=== PATIENT | female | born 1950 | race Caucasian/White ===

== ENCOUNTER → 2022-02-09 | Outpatient (CLI) | payer MEDICARE, SELFPAY ==
[2022-02-09 12:09] LABS: Absolute Lymphocyte Count 2.96 X10^3/uL (0.83-4.51); Absolute Neutrophil Count 4.4 X10^3/uL (2.0-7.7); Basophil# 0.07 X10^3/uL; Basophil% 0.8 % (0-1); Eosinophil# 0.32 X10^3/uL; Eosinophils% 3.7 % (0-5); Hematocrit 42.3 % (37-47); Hemoglobin 13.4 g/dL (12.0-15.0); Lymphocyte # 2.96 X10^3/ul (0.83-4.51); Lymphocyte % 34.4 % (19-41); Mean Corp Hgb Conc 31.7 g/dL (32-36); Mean Corpuscular Hgb 31.9 pg (27.0-32.0); Mean Corpuscular Volume 100.7 fL (81-99); Monocyte# 0.79 X10^3/uL; Monocyte% 9.2 % (0-10); NRBC Flagged by Analyzer 0 % (0-5); Neutrophil # 4.35 X10^3/uL (2.7-7.7); Neutrophil % 50.6 % (47-70); Platelet Count 634 K/mm3 (150-450); RBC Distribution Width CV 13.2 % (11.6-14.6); White Blood Count 8.6 K/mm3 (4.4-11.0)
[2022-02-09 12:47] LABS: ALB/GLOB Ratio 0.7 RATIO (0.9-2.4); AST(SGOT) 19 U/L (15-37); Alanine Aminotransfer ALT/SGPT 22 U/L (13-56); Albumin, Serum 3.2 g/dL (3.2-5.0); Alkaline Phosphatase 66 U/L (45-117); Anion Gap 7 (5-15); BUN 14 mg/dL (7-18); BUN/Creat Ratio 12.7 RATIO (10-20); Calcium,Total 9.7 mg/dL (8.5-10.1); Chloride 106 mmol/L (98-107); EST Glomerular Filtration Rate 52 mL/min (>60); Est Glom Filt Rate - Afr Amer 62 mL/min (>60); Globulin 4.5 g/dL (2.2-4.2); Glucose 96 mg/dL (74-106); Potassium 3.7 mmol/L (3.5-5.1); Protein, Total 7.7 g/dL (6.4-8.2); Sodium Level 140 mmol/L (136-145)
== END | disposition home or self-care (01) ==
PROVIDERS: PCP Internal Medicine; Referring Provider Internal Medicine; Visit Provider Internal Medicine
DX: J06.9 Acute upper respiratory infection, unspecified (principal); Z20.822 Contact with and (suspected) exposure to COVID-19
CPT/HCPCS: 36415; 80053; 85025; 87635; U0003; U0005

== ENCOUNTER → 2022-05-31 | Outpatient (CLI) | payer MEDICARE, SELFPAY ==
[2022-05-31 13:20] LABS: Anion Gap 4 (5-15); BUN 17 mg/dL (7-18); BUN/Creat Ratio 16.3 RATIO (10-20); Chloride 106 mmol/L (98-107); Cholesterol 167 mg/dL (200); Creatinine, Serum 1.04 mg/dL (0.55-1.02); EST Glomerular Filtration Rate 55 mL/min (>60); Est Glom Filt Rate - Afr Amer 67 mL/min (>60); Glucose 92 mg/dL (74-106); High Density Lipoprotein 55 mg/dL; Potassium 4.8 mmol/L (3.5-5.1); Sodium Level 139 mmol/L (136-145); Triglycerides 134 mg/dL; Very Low Density Lipoprotein 27 mg/dL (5-40)
== END | disposition home or self-care (01) ==
LOC: BIMLAB 10:29
PROVIDERS: PCP Internal Medicine; Referring Provider Internal Medicine; Visit Provider Internal Medicine
DX: I10 Essential (primary) hypertension (principal)
CPT/HCPCS: 36415; 80048; 80061

== ENCOUNTER → 2022-09-27 | Outpatient (CLI) | payer MEDICARE, SELFPAY ==
[2022-09-27 12:59] LABS: T3 Total - Triiodothyronine 1.33 ng/mL (0.6-1.81)
[2022-09-27 13:15] LABS: Anion Gap 5 (5-15); BUN 15 mg/dL (7-18); BUN/Creat Ratio 15.4 RATIO (10-20); Calcium,Total 9.3 mg/dL (8.5-10.1); Chloride 107 mmol/L (98-107); Creatinine, Serum 0.98 mg/dL (0.55-1.02); EST Glomerular Filtration Rate 59 mL/min (>60); Est Glom Filt Rate - Afr Amer 72 mL/min (>60); Glucose 94 mg/dL (74-106); Potassium 4.1 mmol/L (3.5-5.1); Sodium Level 139 mmol/L (136-145); T4 Free Direct 1.06 ng/dL (0.76-1.46); Thyroid Stim Hormone (TSH) 0.85 uIU/mL (0.358-3.74)
== END | disposition home or self-care (01) ==
LOC: BIMLAB 08:13
PROVIDERS: PCP Internal Medicine; Referring Provider Internal Medicine; Visit Provider Internal Medicine
DX: M54.50 Low back pain, unspecified (principal); G89.29 Other chronic pain; I10 Essential (primary) hypertension; Z86.39 Personal history of other endocrine, nutritional and metabolic disease
CPT/HCPCS: 36415; 80048; 84439; 84443; 84480

== ENCOUNTER → 2022-12-06 | Outpatient (CLI) | payer MEDICARE, SELFPAY ==
--- NOTE | 2022-12-06 14:11 | US_ITS ---
INDICATION: enlarged right sided lymph node EXAMINATION: Ultrasound US Head/Neck Soft Tissue TECHNIQUE: Chávez scale and color doppler imaging was performed of the neck. COMPARISON: No relevant prior comparison study available FINDINGS: Soft tissue mass in the right side of the neck likely represent prominent node corresponding to the palpable abnormality measuring about 2.6 x 1.2 x 1.8 cm.. Smaller node on the left side of the neck measuring about 1 x 2.4 x 0.7 cm. [No other masses are identified. US/Head/Neck Soft Tissue IMPRESSION: Palpable soft tissue mass on the right side of neck as described above likely representing enlarged lymph nodes. CT scan of the soft tissues of neck might be further value. Consider ultrasound-guided biopsy if indicated. Electronically Signed: Carmelo Booker MD at 15:23 EDT ,
== END | disposition home or self-care (01) ==
PROVIDERS: PCP Internal Medicine; Referring Provider Internal Medicine; Visit Provider Internal Medicine
DX: R59.0 Localized enlarged lymph nodes (principal)
CPT/HCPCS: 76536

== ENCOUNTER → 2023-01-11 | Outpatient (CLI) | payer MEDICARE, SELFPAY ==
--- NOTE | 2023-01-11 14:34 | CT_ITS ---
EXAM: CT NECK WITH INTRAVENOUS CONTRAST CLINICAL INDICATION: cervical adenopathy TECHNIQUE: Helically acquired images were obtained of the neck with intravenous contrast. This CT exam was performed using one or more of the following dose reduction techniques: automated exposure control, adjustment of the mA and/or kV according to patient size, and/or use of iterative reconstruction technique. CONTRAST: IV 75mL [id number] COMPARISON: Soft tissue neck ultrasound, 12/06/2022. FINDINGS: NASOPHARYNX: No significant abnormality. SUPRAHYOID NECK: No significant abnormality. Oropharynx, oral cavity, parapharyngeal space and retropharyngeal space are unremarkable. INFRAHYOID NECK: No significant abnormality. The larynx, hypopharynx and supraglottis are unremarkable. SUBMANDIBULAR/PAROTID GLANDS: Asymmetric atrophy of the left submandibular gland without acute glandular pathology. THYROID: No significant abnormality. No enlarged or calcified nodules. SINUSES: Mucus retention cyst in the left maxillary sinus. ORBITS: Bilateral ocular lens extraction presumptively for the treatment of cataracts. Otherwise, no acute orbital pathology. DENTAL: The patient is edentulous. BONES/JOINTS: Mild bilateral TMJ arthrosis. Degenerative changes in the spine. No acute fracture. SOFT TISSUES: No significant abnormality. VASCULATURE: Atherosclerosis. LYMPH NODES: No significant abnormality. No lymphadenopathy. LUNG APICES: Normal as visualized. CT/Soft Tissue Neck WITH Contrast IMPRESSION: 1. Asymmetric atrophy of the left submandibular gland without acute glandular pathology. 2. The palpable abnormality and the sonographic findings likely correlate to the right submandibular gland which appears normal by CT features. Adjacent normal-appearing lymph nodes are present. No definite acute pathology in the neck. Electronically Signed: Bobo Johnston DO at 20:56 EST ,
[2023-01-11 15:10] LABS: CREATININE FINGERSTICK 1.1 mg/dL (0.55-1.02)
== END | disposition home or self-care (01) ==
LOC: CT 14:32
PROVIDERS: PCP Internal Medicine; Visit Provider Internal Medicine
DX: R59.0 Localized enlarged lymph nodes (principal)
CPT/HCPCS: 70491; Q9967

== ENCOUNTER → 2023-05-04 | Outpatient (CLI) | payer MEDICARE, SELFPAY ==
--- NOTE | 2023-05-04 12:40 | RAD_ITS ---
STUDY: X-RAY - PELVIS AND RIGHT HIP REASON FOR EXAM: Female, 73 years old. Hip pain. TECHNIQUE: 3 views of the pelvis and hip. COMPARISON: None. FINDINGS: Normal bowel gas pattern. Osteopenia. Normal visualized soft tissue structures. Mild arthrosis of the sacroiliac joints. Mild arthrosis of the symphysis pubis. Mild arthrosis of both hips. RAD/HIP, UNI W/ Pelvis 2-3 Views IMPRESSION: Osteopenia with mild arthrosis of both sacroiliac joints, symphysis pubis and hips. No acute abnormality or erosive changes. Electronically Signed: Reza Moser MD at 13:42 EST ,
--- OUTSIDE RECORDS SUMMARY | 2023-05-04 19:21 | XMS RPT_ITS | CCD ---
Author Name Unknown Address [address] [place] [address] Organization [facility] Care Team Providers Care Aircraft Maintenance Supervisor Name Role Phone Tomas Cardoza Primary Care Provider Tomas Cardoza Unavailable [phone] Unavailable Unavailable Tomas Cardoza MD Primary Care Provider PROVIDER, UNKNOWN Referring Unavailable Tomas Cardoza Attending Unavailable Quinn, Tomas Primary Care Unavailable PROVIDER, UNKNOWN Referring Unavailable HERMINIA PAINTING Attending Unavailable Gunangel, Tomas Primary Care Unavailable PROVIDER, UNKNOWN Referring Unavailable Juany Luna Attending Unavailable GunTomas ortiz Primary Care Unavailable PROVIDER, UNKNOWN Referring Unavailable HERMINIA PANITING Attending Unavailable Tiffany Cleveland Primary Care Unavailable Tomas Cardoza MD Primary Care Provider Vel Staley MD Unavailable HERMINIA PAINTING Attending Unavailable HERMINIA PAINTING Referring Unavailable TOMAS CARDOZA Primary Care Unavailable HERMINIA PAINTING Attending Unavailable TOMAS CARDOZA Primary Care Unavailable Allergies Allergy Classification Reported Allergen(s) Allergy Type Date of Onset Reaction(s) Facility Opioid Agonists (1 source) Meperidine Drug Allergy 10-07-2016 Other (See Comments) [facility] (20 sources) Meperidine; Translations: [Demerol TABS] Drug Allergy 10-07-2016 Other (See Comments) [facility], [place] Medications Current Medications Medication Drug Class(es) Dates Sig (Normalized) Sig (Original) acetaminophen 300 mg / codeine phosphate 30 mg oral tablet (1 source) Opioid Agonist Start: 01-15-2019 End: 01-18-2019 take 1 tablet by mouth every six hours as needed for pain, then take 1 tablet by mouth as needed for pain acetaminophen-code ine (TYLENOL/CODEINE #3) 300-30 MG per tablet Indications: S/p nephrectomy Take 1 tablet by mouth every 6 hours as needed for Pain for up to 3 days. Intended supply: 3 days. Take lowest dose possible to manage pain 12 tablet 0 01/15/2019 01/18/2019 Active amLODIPine 5 mg oral tablet (20 sources) Dihydropyridine Calcium Channel Bebe Start: 01-14-2019 take 5 mg by mouth once daily 5 mg, Oral, DAILY, First dose on Mon01/14/19 at 1715 docusate sodium 100 mg oral capsule (1 source) Start: 01-14-2019 take 100 mg by mouth twice daily 100 mg, Oral, 2 TIMES DAILY, First dose on Mon01/14/19 at 2100 Do not crush or break Post-op 0.4 ml enoxaparin sodium 100 mg/ml prefilled syringe (1 source) Low Molecular Weight Heparin Start: 01-15-2019 inject 40 mg by subcutaneous injection once daily 40 mg, Subcutaneous, DAILY, First dose on Mon01/15/19 at 0900 Pharmacy to dose if renal insufficiency present. Post-op famotidine 20 mg oral tablet (20 sources) Histamine-2 Receptor Antagonist Start: 01-14-2019 take 40 mg by mouth twice daily 40 mg, Oral, 2 TIMES DAILY, First dose on Mon01/14/19 at 2100 Completed/Discontinued Medications Medication Drug Class(es) Dates Sig (Normalized) Sig (Original) acetaminophen 500 mg oral tablet (19 sources) Start: 07-08-2021 Tylenol Extra Strength 500 MG Oral Tablet Quantity: 0 Refills: 0 Ordered: 08-Jul-2021 DO Start : 08-Jul-2021 Active Problems Active Problems Problem Classification Problem Date Documented Da te Episodic/Chronic Biliary tract disease (5 sources) Gallstone; Translations: [Calculus of gallbladder without cholecystitis without obstruction] Onset: 2 Episodic Cancer of kidney and renal pelvis (7 sources) Malignant tumor of kidney; Translations: [Malignant neoplasm of right kidney, except renal pelvis] Onset: 2 Chronic Disorders of lipid metabolism (20 sources) Hyperlipidemia; Translations: [Hyperlipidemia, unspecified] Onset: 9 10-07-2016 Chronic Esophageal disorders (20 sources) Gastroesophageal reflux disease; Translations: [Gastroesophageal reflux disease without esophagitis] Onset: 9 10-02-2018 Chronic Essential hypertension (20 sources) Hypertensive disorder; Translations: [Essential hypertension] Onset: 9 10-07-2016 Chronic Other acquired deformities (3 sources) Scoliosis of lumbar spine; Translations: [Scoliosis [and kyphoscoliosis], idiopathic] Chronic Other circulatory disease (3 sources) H/O: hypertension; Translations: [Personal history of other diseases of circulatory system] Episodic Other diseases of bladder and urethra (3 sources) Overactive bladder; Translations: [Overactive bladder] Onset: 3 02-07-2023 Chronic Other diseases of bladder and urethra (1 source) Overactive bladder; Translations: [Overactive bladder] Onset: 3 Chronic Other diseases of kidney and ureters (18 sources) Renal mass; Translations: [Other specified disorders of kidney and ureter] Onset: 9 01-14-2019 Chronic Other diseases of kidney and ureters (2 sources) Other specified disorders of kidney and ureter; Translations: [Other specified disorders of kidney and ureter] Onset: 2 Chronic Other diseases of kidney and ureters (1 source) Cyst of kidney; Translations: [Cyst of kidney, acquired] Episodic Other diseases of kidney and ureters (2 sources) Cyst of kidney, acquired; Translations: [Cyst of kidney, acquired] Onset: 2 Episodic Other gastrointestinal disorders (2 sources) Bariatric surgery status; Translations: [Bariatric surgery status] Onset: 2 Episodic Other nutritional; endocrine; and metabolic disorders (20 sources) Obesity; Translations: [Obesity, unspecified] Onset: 9 10-07-2016 Chronic Other nutritional; endocrine; and metabolic disorders (19 sources) Body mass index 40+ - severely obese; Translations: [Morbid (severe) obesity due to excess calories] Onset: 9 12-14-2018 Chronic Residual codes; unclassified (9 sources) History of radical nephrectomy; Translations: [Acquired absence of kidney] Onset: 2 Episodic Residual codes; unclassified (4 sources) Acquired absence of kidney; Translations: [Acquired absence of kidney] Onset: 2 Episodic Residual codes; unclassified (1 source) Poor hypertension control; Translations: [Poor hypertension control] Spondylosis; intervertebral disc disorders; other back problems (8 sources) Degeneration of lumbar intervertebral disc; Translations: [Degeneration of lumbar or lumbosacral intervertebral disc] Onset: 2 Chronic Thyroid disorders (2 sources) Nontoxic single thyroid nodule; Translations: [Nontoxic single thyroid nodule] Onset: 2 Chronic Past or Other Problems Problem Classification Problem Date Documented Da te Episodic/Chronic Abdominal hernia (17 sources) Hiatal hernia; Translations: [Diaphragmatic hernia without obstruction or gangrene] Onset: 12-14-2018 12-14-2018 Episodic Abdominal pain (1 source) Generalized abdominal pain; Translations: [Generalized abdominal pain] Episodic Cancer of kidney and renal pelvis (3 sources) History of malignant neoplasm of kidney; Translations: [Personal history of other malignant neoplasm of kidney] Onset: 07-20-2021 Episodic Malaise and fatigue (20 sources) Fatigue; Translations: [Other fatigue] Onset: 10-07-2016 10-07-2016 Episodic Nutritional deficiencies (20 sources) Deficiency of multiple nutrient elements; Translations: [Disorder of vitamin D] Onset: 10-07-2016 10-07-2016 Episodic Other diseases of kidney and ureters (19 sources) Renal mass; Translations: [Right renal mass] Onset: 12-12-2018 12-12-2018 Episodic Other gastrointestinal disorders (20 sources) Heartburn; Translations: [Heartburn] Onset: 12-14-2018 10-07-2016 Episodic Other lower respiratory disease (20 sources) Dyspnea on exertion; Translations: [Shortness of breath] Onset: 10-07-2016 10-07-2016 Episodic Other non-traumatic joint disorders (20 sources) Hip pain; Translations: [Pain in unspecified hip] Onset: 10-07-2016 10-07-2016 Episodic Other screening for suspected conditions (not mental disorders or infectious disease) (5 sources) Serum iron low; Translations: [Ultrasonography of abdomen abnormal] Onset: 07-20-2021 Episodic Residual codes; unclassified (14 sources) H/O: surgery; Translations: [History of gastric stapling] Onset: 11-23-2018 11-23-2018 Episodic Spondylosis; intervertebral disc disorders; other back problems (20 sources) Backache; Translations: [Dorsalgia, unspecified] Onset: 10-07-2016 10-07-2016 Episodic Results Test Name Value Interpretation Reference Range Facil ity Vital Signs Date Time Vital Sign Value Performing Clinician Diamond blank 09-09-2021 10:35-0400 Body height 154.94 cm Tomas H Gunning Work Phone: [facility] Work Phone: 09-09-2021 10:35-0400 Body mass index (BMI) [Ratio] 45.35 kg/m2 Tomas H Gunning Work Phone: [facility] Work Phone: 09-09-2021 10:35-0400 Body surface area Derived from formula 2.04 m2 Tomas H Gunning Work Phone: [facility] Work Phone: 09-09-2021 10:35-0400 Body weight 108.86 kg Tomas H Gunning Work Phone: [facility] Work Phone: 09-09-2021 10:35-0400 Diastolic blood pressure 81 mm[Hg] Tomas H Gunning Work Phone: [facility] Work Phone: 09-09-2021 10:35-0400 Heart rate 59 /min Tomas H Gunning Work Phone: [facility] Work Phone: 09-09-2021 10:35-0400 Respiratory rate 98 /min Tomas H Gunning Work Phone: [facility] Work Phone: 09-09-2021 10:35-0400 Systolic blood pressure 178 mm[Hg] Tomas H Gunning Work Phone: [facility] Work Phone: 07-08-2021 11:38-0400 Body height 154.94 cm Tomas Cardoza Work Phone: [facility] Work Phone: 07-08-2021 11:38-0400 Body mass index (BMI) [Ratio] 45.35 kg/m2 Tomas Cardoza Work Phone: [facility] Work Phone: 07-08-2021 11:38-0400 Body surface area Derived from formula 2.04 m2 Tomas Cardoza [facility] Phone[facility] Work Phone: 07-08-2021 11:38-0400 Body weight 108.86 kg Tomas Cardoza Work Phone: [facility] Work Phone: 07-08-2021 11:38-0400 Diastolic blood pressure 78 mm[Hg] Tomas Cardoza Work Phone[facility] Work Phone: 07-08-2021 11:38-0400 Heart rate 70 /min Tomas Cardoza Work Phone: [facility] Work Phone: 07-08-2021 11:38-0400 SaO2% (BldA) [Mass fraction] 96 % Tomas Cardoza Work Phone: [facility] Work Phone: 07-08-2021 11:38-0400 Systolic blood pressure 130 mm[Hg] Tomas Cardoza Work Phone: [facility] Work Phone: 01-15-2019 09:43-0500 Body Temperature 99.5 [degF] [employer] [facility] [employer] [place] [place] 01-15-2019 09:43-0500 BP Diastolic 76 mm[facility]Hg] [facility] [place] 01-15-2019 09:43-0500 BP Systolic 162 mm[Hg] Vel Frank [facility] , [place] 01-15-2019 09:43-0500 Pulse (Heart Rate) 65 /min Vel Cruzidchip Frank [facility], [place] 01-15-2019 09:43-0500 Pulse Oximetry 94 % Vel Frank [facility] , [place] 01-15-2019 09:43-0500 Respiratory Rate 16 /min Vel Cruzidchip Frank [facility], [place] 01-14-2019 10:37-0500 BMI (Body Mass Index) 45.44 kg/m2 Vel Frank [place], [place] 01-14-2019 10:37-0500 Body weight 102.06 kg Vel Cruzidchip [place] 01-14-2019 10:37-0500 Height 149.9 cm [facility] [place] 12-14-2018 10:09-0400 BP Diastolic 52 mm[Hg] [facility] [place] 12-14-2018 10:09-0400 BP Systolic 111 mm[Hg] Rocky Lockahrt [place], [place] 12-14-2018 10:09-0400 Pulse (Heart Rate) 58 /min Rocky Frank [place], [place] 12-14-2018 10:09-0400 Pulse Oximetry 97 % Rocky Frank [place], [place] 12-14-2018 10:09-0400 Respiratory Rate 16 /min Rocky Frank [facility], [place] 12-14-2018 08:11-0400 BMI (Body Mass Index) 48.47 kg/m2 Rocky Frank [place], [place] 12-14-2018 08:11-0400 Body Temperature 98.6 [degF] Rocky Frank [facility] [place] , [place] 12-14-2018 08:11-0400 Body weight 108.86 kg Rocky Frank [place], [place] 12-14-2018 08:11-0400 Height 149.9 cm Rocky Frank [place] Encounters Encounter Date Encounter Type Care Provider Facility Start: 02-07-2023 End: 02-07-2023 Office outpatient visit 15 minutes Herminia Painting [employer] - [employer] WR[employer]PER Work Phone: [facility] Urology Procedures Date Procedure Procedure Detail Performing Clinician Start: 02-03-2023 Radiologic exam chest 2 views Herminia Painting [employer] - [employer]PER Work Phone: Start: 07-20-2021 Radiologic exam chest 2 views Herminia Painting [employer] PROF[employer] - [employer]PER Work Phone: Start: 11-13-2020 Screening digital breast tomosynthesis bi Tomas Cardoza MD Work Phone: Start: 08-05-2020 Radiologic exam chest 2 views Lou Linder PA-C Work Phone: Start: 06-05-2020 Creatinine blood Lou Barrera ier Work Phone: Start: 12-19-2019 Chest x-ray 1 view frontal Lou Black rstenmaier Work Phone: Start: 12-19-2019 Basic metabolic panel calcium total Lou Barreraier Work Phone: Start: 08-12-2019 Radiologic exam chest 2 views Vel Nething Work Phone: Start: 08-12-2019 Ct abdomen & pelvis w/o contrast material Vel Nething Work Phone: Start: 08-05-2019 Basic metabolic panel calcium total Vel Nething Work Phone: Start: 04-18-2019 Dxa bone density study 1/> sites axial skel Christiano Avelar Work Phone: Start: 01-15-2019 BASIC METABOLIC PANEL W/ REFLEX TO MG FOR LOW K Skip Francis Work Phone: Start: 01-15-2019 Blood count complete auto&auto difrntl wbc Skip Francis Work Phone: Start: 01-14-2019 OPERATIVE REPORT 3m Scanning Start: 01-14-2019 Blood typing serologic abo Reza Terrazas Work Phone: Start: 01-14-2019 Ecg routine ecg w/least 12 lds w/i&r Reza Terrazas Work Phone: Start: 12-24-2018 Radiologic exam chest 2 views Jasper Morris Work Phone: Start: 12-14-2018 H/O: surgery History of gastric stapling Herminia Painting [employer] PROFESSOR - [employer] WR[employer]PER Work Phone: Start: 12-14-2018 HM ENDOSCOPY REPORT 3m Scanning Start: 12-07-2018 Radex gi tract upper w/wo delayed images w/o kub Nelly R Bridle Work Phone: Start: 11-23-2018 H/O: surgery History of gastric stapling Lou Linder PA-C Work Phone: Start: 11-20-2018 Mri abdomen w/o & w/contrast material Nelly R Bridle Work Phone: Start: 11-15-2018 Basic metabolic panel calcium total Juanyroberta Navarro Work Phone: Start: 11-08-2018 ROUTINE EKG TREADMILL STRESS TEST [employer]any [employer] Work Phone: Start: 11-01-2018 Us abdominal real time w/image documentation Nelly R Bridle Work Phone: Start: 10-22-2018 25 hydroxy includes fractions if performed Nelly R Bridle Work Phone: Start: 10-22-2018 Assay of ferritin Nelly R Bridle Work Phone: Start: 10-22-2018 Assay of folic acid serum Nelly R Bridle Work Phone: Start: 10-22-2018 Assay of iron Nelly R Bridle Work Phone: Start: 10-22-2018 Assay of magnesium Nelly R Bridle Work Phone: Start: 10-22-2018 Assay of thyroid stimulating hormone tsh Nelly R Bridle Work Phone: Start: 10-22-2018 Blood count complete automated Nelly R Bridle Work Phone: Start: 10-22-2018 Comprehensive metabolic panel Nelly Guerrero Work Phone: Start: 10-22-2018 Cyanocobalamin vitamin b-12 Nelly Guerrero Work Phone: Start: 10-22-2018 Lipid panel Nelly Guerrero Work Phone: Arthroplasty of knee Tomas Cardoza Work Phone: Plan of Treatment Date Care Activity Detail Author Start: 02-06-2024 End: 02-06-2024 Telemedicine consultation with patient 02/06/2024 11:20 AM EST Telemedicine [facility] [address] [place] [id number] Herminia Painting, [employer] PROFESSOR - ROLL WRAPPER [address] [place] [address] [facility] Start: 10-23-2023 Lipid screen Lipid screen Paulanidhi [facility] [place], [place] Start: 02-08-2023 End: 02-09-2024 XR Chest 2 Views XR chest 2 views Imaging Routine H/O right radical nephrectomy Right renal mass Expected: 02/08/2023 (Approximate), Expires: 02/09/2024 [facility] Work Phone: Payers Date Payer Category Payer Medicare [employer] RE [employer] [id number] 2021-Present [address] [place] [address] Medicare O [id number] 2016 Medicare [employer]-MEDICA RE ADVANTAGE [employer] ADV[employer]AGE xxxxxxxxxxx 2016-Present [phone] [address] [place] [address] xxxxxxxxxxx [id number] 2016 Medicare [id number] 1950 Unknown [id number] 1950 Unknown [id number] 1950 Unknown [id number] 1950 Unknown [id number] Unknown Social History Date Type Detail Facility Start: 10-07-2016 End: 10-17-2018 Tobacco smoking status NHIS Never smoker [place], [place] Start: 10-17-2018 End: 11-19-2018 Alcohol intake No [place], [place] Start: 1950 Sex Assigned At Not on file M [place], [place] Start: 01-14-2019 End: 08-27-2020 Alcohol intake Current non-drinker of alcohol (finding) [place] Start: 10-07-2016 End: 09-18-2019 Tobacco use and exposure Never used [place] Non-smoker [facility] Work Phone: Clinical Notes 07-08-2021 to 02-07-2023 NIKOLAS Villegas CNP - 02/07/2023 11:40 AM ESTThNIKOLAS Martinez CNP - 02/07/2023 11:40 AM ESTAddendum Note - NIKOLAS Villegas CNP - 02/07/2023 11:40 AM EST Note Date & Type Note Facility 02-07-2023 Note Addended by: HERMINIA PAINTING on: 02/08/2023 10:16 AM Modules accepted: [facility] 02-07-2023 History of Presen t illness Narrative Images from the original note were not included. NIKOLAS Stevens CNP 02/07/2023 at 11:45 AM Urology Telehealth Visit PATIENT NAME: Alyson Barron DATE OF : 1950 TODAY'S DATE: 02/07/2023 CHIEF COMPLAINT: Chief Complaint Patient presents with Renal Cancer S/p nephrectomy 2019 Overactive Bladder On oxybutynin 5mg with no improvement. The patient, Ms. Barron is a 73 y.o. female. Their identity was verified by name and date of . Those on the call: Patient Alyson Barron has consented to this virtual visit telehealth encounter. Patient was identified and seen today via Telehealth by agreement and consent. I used the following Telehealth technology: Audio and video capabilities. Patient location: Patient Location: Home. This patient encounter is appropriate and reasonable under the circumstances: transportation issues . The patient has been advised of the potential risks and limitations of this mode of treatment (including but not limited to the absence of in-person examination) and has agreed to be treated in a remote fashion in spite of them. Any and all of the patient's/patient's family's questions on this issue have been answered and I have made no promises or guarantees to the patient. The patient has also been advised to contact this office for worsening conditions or problems, and seek emergency medical treatment and/or call 911 if the patient deems either necessary. The patient stated that they are currently in the [facility]. If the patient is a minor, permission has been obtained by the parent or guardian for the patient to receive medical care at this visit. Subjective: Ms. Barron is a 73 y.o. female who presents for telehealth visit regarding right renal cancer. She has a hx of Hx. Of Rt. RCC, pT1a s/p radical nephrectomy on 01/14/19 . Most recent imaging noted no recurrence No new flank pain or gross hematuria Cut back the oxybutynin to 5 mg and doing great. No more dry mouth however symptoms are not really controlled Today she is afebrile and denies any dysuria. This note/recommendations were completed via a thorough chart review and history from patient via telephone. Review of Systems: Review of Systems Constitutional: Negative for chills and fever. Genitourinary: Positive for frequency and urgency. Negative for decreased urine volume, difficulty urinating, dysuria, flank pain and hematuria. Past Medical History: Past Medical History: Diagnosis Date Anesthesia complication Arthritis HANDS Back pain Deficiency of multiple nutrient elements Difficulty sleeping Dizziness Fatigue GERD (gastroesophageal reflux disease) Heartburn Hyperlipidemia Hypertension Incontinence Joint pain, hip Muscle weakness Obesity Personal history of urinary (tract) infections Shortness of breath on exertion Snoring Past Surgical History: Past Surgical History: Procedure Laterality Date GASTRIC RESTRICTION SURGERY 1980 Dr. Morel, [facility] REPEAT [place] 1984. HYSTERECTOMY 1985 [place] PARTIAL NEPHRECTOMY Right 01/14/2019 SPLENECTOMY, TOTAL 1985 SPLEEN 'NICKED' DURING SECOND VBG TOTAL KNEE ARTHROPLASTY Bilateral 1994 [facility], knee TUBAL LIGATION 1973 [facility]aird Medications Prior to Admission medications Not on File Labs: Hemoglobin Date/Time Value Ref Range Status 01/15/2019 03:10 AM 13.8 11.7 - 16.0 g/dL Final Lab Results Component Value Date WBC 10.1 01/15/2019 HGB 13.8 01/15/2019 MCV 97.6 01/15/2019 Lab Results Component Value Date GLUCOSE 99 12/19/2019 CALCIUM 9.8 12/19/2019 NA 139 12/19/2019 K 4.6 12/19/2019 CO2 23 12/19/2019 CL 105 12/19/2019 BUN 21 (H) 12/19/2019 CREATININE 1.19 12/22/2021 No components found for: LABURIN Radiology Review: Exam Date/Time: 02/03/2023 09:15 Procedure: XR CHEST 2 VIEWS Ordering Provider: PAINTING THAPASYA Reason For Exam: Kidney cancer, post nephrectomy, monitor EXAMINATION: XR chest PA and lateral. EXAM DATE & TIME: 02/03/2023 9:15 AM EST INDICATION: Kidney cancer, post nephrectomy, monitor ADDITIONAL INFORMATION: 73-year-old female with a history of kidney cancer status post nephrectomy presents for follow-up COMPARISON: Chest radiographs dated 12/22/2021 TECHNIQUE: Frontal and lateral views of the chest were obtained. FINDINGS: The cardiomediastinal silhouette is within normal limits. No focal consolidation, pleural effusion or pneumothorax. No acute osseous abnormality is demonstrated. Degenerative changes of the spine and shoulders are seen. The bones are osteopenic. Numerous surgical clips project over the upper abdomen, unchanged. IMPRESSION: No acute cardiopulmonary abnormality identified. Chronic findings as above. Impression/Plan Diagnoses and all orders for this visit: Overactive bladder - solifenacin (VESIcare) 10 MG tablet; Take 1 tablet (10 mg) by mouth daily. Swallow tablet whole; do not crush, chew, or split. H/O right radical nephrectomy Right renal mass - here for a f/u - Hx. Of RCC, pT1a, s/p radical right nephrectomy in 01/2019 - Today she states that she is doing great. The oxybutynin 5mg is not quite improving her urinary frequency and urgency. She denies any new flank pain or hematuria. - Discussed behavioral modification that can be beneficial for her lower urinary tract symptoms including double voiding, timed voiding, avoidance of caffeine, alcohol and other diuretics, as well as night-time fluid restriction. - Plan to discontinue oxybutynin and trial vesicare 10mg. Reviewed side effects - I reviewed the CXR image and reiterated that there was no acute cardiopulmonary process. Per NCCN guidelines, will need abdominal imaging for 3 years after nephrectomy and as needed after and will need CXR for 5 years post nephrectomy. Plan to follow up with CXR prior. All previous imaging neg. For recurrence Follow up in a year The patient was instructed to call the office or go to the nearest ER if worsening symptoms such as fever > 101F, inability to urinate, intractable nausea or vomiting, or uncontrolled pain. The patient verbalizes understanding. Follow Up: Follow up in about 1 year (around 02/08/2024), or if symptoms worsen or fail to improve. Patient and/or family/guardian verbalizes understanding of and agreement with treatment recommendations and plan: Yes Length of Visit: I affirm this is a visit with an established patient who has not had a related appointment within my department in the past 7 days or scheduled within the next 24 hours. Total Time: 15 were spent on the digital evaluation and management of this patient. NIKOLAS Stevens CNP 02/07/23 11:45 AM documented in this encounter [facility] 02-07-2023 History of Presen t illness Narrative Images from the original note were not included. NIKOLAS Stevens CNP 02/07/2023 at 11:45 AM Urology Telehealth Visit PATIENT NAME: Alyson Barron DATE OF : 1950 TODAY'S DATE: 02/07/2023 CHIEF COMPLAINT: Chief Complaint Patient presents with Renal Cancer S/p nephrectomy 2019 Overactive Bladder On oxybutynin 5mg with no improvement. The patient, Ms. Barron is a 73 y.o. female. Their identity was verified by name and date of . Those on the call: Patient Alyson Barron has consented to this virtual visit telehealth encounter. Patient was identified and seen today via Telehealth by agreement and consent. I used the following Telehealth technology: Audio and video capabilities. Patient location: Patient Location: Home. This patient encounter is appropriate and reasonable under the circumstances: transportation issues . The patient has been advised of the potential risks and limitations of this mode of treatment (including but not limited to the absence of in-person examination) and has agreed to be treated in a remote fashion in spite of them. Any and all of the patient's/patient's family's questions on this issue have been answered and I have made no promises or guarantees to the patient. The patient has also been advised to contact this office for worsening conditions or problems, and seek emergency medical treatment and/or call 911 if the patient deems either necessary. The patient stated that they are currently in the [facility]. If the patient is a minor, permission has been obtained by the parent or guardian for the patient to receive medical care at this visit. Subjective: Ms. Barron is a 73 y.o. female who presents for telehealth visit regarding right renal cancer. She has a hx of Hx. Of Rt. RCC, pT1a s/p radical nephrectomy on 01/14/19 . Most recent imaging noted no recurrence No new flank pain or gross hematuria Cut back the oxybutynin to 5 mg and doing great. No more dry mouth however symptoms are not really controlled Today she is afebrile and denies any dysuria. This note/recommendations were completed via a thorough chart review and history from patient via telephone. Review of Systems: Review of Systems Constitutional: Negative for chills and fever. Genitourinary: Positive for frequency and urgency. Negative for decreased urine volume, difficulty urinating, dysuria, flank pain and hematuria. Past Medical History: Past Medical History: Diagnosis Date Anesthesia complication Arthritis HANDS Back pain Deficiency of multiple nutrient elements Difficulty sleeping Dizziness Fatigue GERD (gastroesophageal reflux disease) Heartburn Hyperlipidemia Hypertension Incontinence Joint pain, hip Muscle weakness Obesity Personal history of urinary (tract) infections Shortness of breath on exertion Snoring Past Surgical History: Past Surgical History: Procedure Laterality Date GASTRIC RESTRICTION SURGERY 1980 Dr. Morel, [facility] REPEAT [place] 1984. HYSTERECTOMY 1985 [place] PARTIAL NEPHRECTOMY Right 01/14/2019 SPLENECTOMY, TOTAL 1985 SPLEEN 'NICKED' DURING SECOND VBG TOTAL KNEE ARTHROPLASTY Bilateral 1994 [facility], knee TUBAL LIGATION 1973 [facility] Medications Prior to Admission medications Not on File Labs: Hemoglobin Date/Time Value Ref Range Status 01/15/2019 03:10 AM 13.8 11.7 - 16.0 g/dL Final Lab Results Component Value Date WBC 10.1 01/15/2019 HGB 13.8 01/15/2019 MCV 97.6 01/15/2019 Lab Results Component Value Date GLUCOSE 99 12/19/2019 CALCIUM 9.8 12/19/2019 NA 139 12/19/2019 K 4.6 12/19/2019 CO2 23 12/19/2019 CL 105 12/19/2019 BUN 21 (H) 12/19/2019 CREATININE 1.19 12/22/2021 No components found for: LABURIN Radiology Review: Exam Date/Time: 02/03/2023 09:15 Procedure: XR CHEST 2 VIEWS Ordering Provider: PAINTING THAPASYA Reason For Exam: Kidney cancer, post nephrectomy, monitor EXAMINATION: XR chest PA and lateral. EXAM DATE & TIME: 02/03/2023 9:15 AM EST INDICATION: Kidney cancer, post nephrectomy, monitor ADDITIONAL INFORMATION: 73-year-old female with a history of kidney cancer status post nephrectomy presents for follow-up COMPARISON: Chest radiographs dated 12/22/2021 TECHNIQUE: Frontal and lateral views of the chest were obtained. FINDINGS: The cardiomediastinal silhouette is within normal limits. No focal consolidation, pleural effusion or pneumothorax. No acute osseous abnormality is demonstrated. Degenerative changes of the spine and shoulders are seen. The bones are osteopenic. Numerous surgical clips project over the upper abdomen, unchanged. IMPRESSION: No acute cardiopulmonary abnormality identified. Chronic findings as above. Impression/Plan Diagnoses and all orders for this visit: Overactive bladder - solifenacin (VESIcare) 10 MG tablet; Take 1 tablet (10 mg) by mouth daily. Swallow tablet whole; do not crush, chew, or split. H/O right radical nephrectomy Right renal mass - here for a f/u - Hx. Of RCC, pT1a, s/p radical right nephrectomy in 01/2019 - Today she states that she is doing great. The oxybutynin 5mg is not quite improving her urinary frequency and urgency. She denies any new flank pain or hematuria. - Discussed behavioral modification that can be beneficial for her lower urinary tract symptoms including double voiding, timed voiding, avoidance of caffeine, alcohol and other diuretics, as well as night-time fluid restriction. - Plan to discontinue oxybutynin and trial vesicare 10mg. Reviewed side effects - I reviewed the CXR image and reiterated that there was no acute cardiopulmonary process. Per NCCN guidelines, will need abdominal imaging for 3 years after nephrectomy and as needed after and will need CXR for 5 years post nephrectomy. Plan to follow up with CXR prior. All previous imaging neg. For recurrence Follow up in a year The patient was instructed to call the office or go to the nearest ER if worsening symptoms such as fever > 101F, inability to urinate, intractable nausea or vomiting, or uncontrolled pain. The patient verbalizes understanding. Follow Up: Follow up in about 1 year (around 02/08/2024), or if symptoms worsen or fail to improve. Patient and/or family/guardian verbalizes understanding of and agreement with treatment recommendations and plan: Yes Length of Visit: I affirm this is a visit with an established patient who has not had a related appointment within my department in the past 7 days or scheduled within the next 24 hours. Total Time: 15 were spent on the digital evaluation and management of this patient. NIKOLAS Stevens CNP 02/07/23 11:45 AM documented in this encounter [facility] 02-07-2023 Miscellaneous Notes Addended by: HERMINIA PAINTING on: 02/08/2023 10:16 AM Modules accepted: Orders documented in this encounter [facility] 02-07-2023 Note Addended by: HERMINIA PAINTING on: 02/08/2023 10:16 AM Modules accepted: Orders [facility] 09-09-2021 History of Presen t illness Narrative Patient presents September 09, 2021 still with lumbosacral back pain. Patient went to 5 sessions of physical therapy without any improvement in her symptoms, takes Tylenol. She denies radicular pain, numbness, tingling, weakness. Patient wished to discuss her treatment options.71-year-old female presents July 08, 2021 complaining of low back pain, bilateral buttock pain occasionally. Rates the pain 8/10. Patient had pain for years got progressively worse. Patient had kidney cancer with nephrectomy, cannot take arthritic anti-inflammatory medicines anymore. Patient's pain is aggravated with bending, general activity, sitting standing walking. Pain patches improve her symptoms. She denies weakness, numbness, tingling, bowel, bladder incontinence. [facility] Work Phone: 07-08-2021 History of Presen t illness Narrative 71-year-old female presents July 08, 2021 complaining of low back pain, bilateral buttock pain occasionally. Rates the pain 8/10. Patient had pain for years got progressively worse. Patient had kidney cancer with nephrectomy, cannot take arthritic anti-inflammatory medicines anymore. Patient's pain is aggravated with bending, general activity, sitting standing walking. Pain patches improve her symptoms. She denies weakness, numbness, tingling, bowel, bladder incontinence. [facility] Work Phone: Chief complaint Narrative - Reported Consult referral from Dr. Cardoza [facility] Work Phone: documented in this encounter [facility] Work Phone: Evaluation note* Diagnosis Hx of renal cell cancer H/O right radical nephrectomy Renal cyst, left Unspecified congenital cystic kidney disease documented in this encounter [facility] Work Phone: Evaluation note* Diagnosis Right renal mass Unspecified disorder of kidney and ureter H/O right radical nephrectomy documented in this encounter [facility] note* Diagnosis Overactive bladder- Primary Hypertonicity of bladder H/O right radical nephrectomy Right renal mass Unspecified disorder of kidney and ureter documented in this encounter [facility] note* Diagnosis Overactive bladder- Primary Hypertonicity of bladder H/O right radical nephrectomy Right renal mass Unspecified disorder of kidney and ureter documented in this encounter [facility] Advance Directives No Advanced Directives Records FoundDocuments on File Type Date Recorded Patient Technical Support Analyst Expl anation Advance Directives and Living Will Power of Business Agent Documents on File Type Date Recorded Patient Technical Support Analyst Expl anation Advance Directives and Living Will Power of Business Agent Latest Code Status on File Code Status Date Activated Date Inactivated Comments Full Code 12/14/2018 8:11 AM 12/15/2018 2:37 AM Latest Code Status on File Code Status Date Activated Date Inactivated Comments Full Code 01/14/2019 4:53 PM Full Code 12/14/2018 8:11 AM 12/15/2018 2:37 AM Latest Code Status on File Code Status Date Activated Date Inactivated Comments Full Code 01/14/2019 4:53 PM 01/15/2019 7:16 PM Latest Code Status on File Code Status Date Activated Date Inactivated Comments Full Code 01/14/2019 4:53 PM 01/15/2019 7:16 PM Full Code 12/14/2018 8:11 AM 12/15/2018 2:37 AM Documents on File Type Date Recorded Patient Technical Support Analyst Expl anation ACP-Advance Directive ACP-Power of Business Agent Latest Code Status on File Code Status Date Activated Date Inactivated Comments Full Code 12/14/2018 8:11 AM Documents on File Type Date Recorded Patient Technical Support Analyst Expl anation ACP-Advance Directive ACP-Power of Business Agent Assessments Diagnosis Essential hypertension Unspecified essential hypertension Shortness of breath on exertion Shortness of breath Gastroesophageal reflux disease without esophagitis Esophageal reflux Hyperlipidemia, unspecified hyperlipidemia type Deficiency of multiple nutrient elements Other nutritional deficiency Low iron Iron deficiency anemia, unspecified Vitamin D insufficiency Unspecified vitamin D deficiency Diagnosis Poor hypertension control Unspecified essential hypertension Diagnosis Abnormal abdominal ultrasound Nonspecific (abnormal) findings on radiological and other examination of abdominal area, including retroperitoneum Calculus of gallbladder without cholecystitis without obstruction Calculus of gallbladder without mention of cholecystitis or obstruction Diagnosis Gastroesophageal reflux disease, esophagitis presence not specified Diagnosis S/p nephrectomy- Primary Acquired absence of kidney Obesity Obesity, unspecified Hypertension Unspecified essential hypertension Morbid obesity with BMI of 45.0-49.9, adult (HCC) Hyperlipidemia Other and unspecified hyperlipidemia Right renal mass Unspecified disorder of kidney and ureter Renal mass Unspecified disorder of kidney and ureter Diagnosis Renal cancer, right (HCC) Diagnosis Renal cancer, right (HCC) Diagnosis Generalized abdominal pain Abdominal pain, generalized Essential hypertension Unspecified essential hypertension Shortness of breath on exertion Shortness of breath Gastroesophageal reflux disease without esophagitis Esophageal reflux Hyperlipidemia, unspecified hyperlipidemia type Deficiency of multiple nutrient elements Other nutritional deficiency Low iron Iron deficiency anemia, unspecified Vitamin D insufficiency Unspecified vitamin D deficiency Diagnosis Morbid obesity with BMI of 45.0-49.9, adult (HCC) Reason for Referral Status Reason Specialty Diagnoses / Procedures Referre d By Contact Referred To Contact Open Radiology Diagnoses Abnormal abdominal ultrasound Calculus of gallbladder without cholecystitis without obstruction Procedures MRI Abdomen W WO Contrast Nelly Guerrero, [employer] [employer] [employer] PROFESSOR - ROLL WRAPPER [address] [place] [address] Status Reason Specialty Diagnoses / Procedures Referred By Contact Referred To Contact Pending Review Radiology Diagnoses Gastroesophageal reflux disease, esophagitis presence not specified Procedures FL UGI Nelly Guerrero, [place]ORY PROFESSOR - ROLL WRAPPER [address] [place] [address] Status Reason Specialty Diagnoses / Procedures Referre d By Contact Referred To Contact Open Radiology Diagnoses Renal cancer, right (HCC) Procedures CT Abdomen Pelvis Wo Contrast Vel Staley MD [address] [place] [address] Status Reason Specialty Diagnoses / Procedures Re ferred By Contact Referred To Contact Open Radiology Diagnoses Generalized abdominal pain Essential hypertension Shortness of breath on exertion Gastroesophageal reflux disease without esophagitis Hyperlipidemia, unspecified hyperlipidemia type Deficiency of multiple nutrient elements Low iron Vitamin D insufficiency Procedures US Abdomen Complete Nelly Guerrero R, [employer]ORY PROFESSOR - ROLL WRAPPER [address] [place] [address] Status Reason Specialty Diagnoses / Procedures Referre d By Contact Referred To Contact Closed Radiology Diagnoses Renal cancer, right (HCC) Procedures CT ABDOMEN W WO CONTRAST Lou Linder PA-C [address] [place] [id number] Discharge Instructions * Instructions* Les Woodward MD - 01/15/2019 Robotic Nephrectomy These are general instructions for you to follow after your surgery. Your doctor or a member of hisor her staff will outline any additional or special instructions for you. Information About Robotic Nephrectomy What is a Robotic Nephrectomy? Now a routine procedure at [facility], robotic nephrectomy is a minimally invasive surgical procedure to remove the kidney using a computer enhanced robotic surgical system (Da Gennaro system). Who is a candidate for robotic nephrectomy? This procedure is used to treat patients who have kidney cancer and is offered to all patients who are candidates for an open radical nephrectomy. What does the procedure involve? Unlike traditional open surgery, robotic surgery requires six small, buttonhole incisions (cuts). Through these incisions, a surgeon uses a powerful 3-dimensional endoscope (a tiny camera) and specialized robotic surgical instruments to remove the prostate without cutting through the stomach muscles. During the procedure, carbon dioxide gas is passed through one of the incisions into the abdominal cavity to lift the abdominal wall away from the organs below, creating more operating space to perform the surgery. This makes it easier for the surgeon to remove the kidney. How long does the surgery take? The surgery takes between 2-4 hours to perform. Will I feel any pain? You will be put to sleep for this procedure. You will not feel any pain during the procedure. You should have very little pain after the procedure. How long will I be in the hospital? Typically, patients stay in the hospital for 1-2 days after theoperation. What are the advantages of a robotic procedure? Patients generally feel much better and need significantly less pain medicine in the early post-operative period. The hospital stay is less than that with traditional open surgery. In general, there is a shorter recovery period, and quicker return \tonormal activity (1-2 weeks) and to work (2-4 weeks). There are smaller incisions. There is significantly less blood loss. Finally, robotic surgery provides the surgeon with an unparalleled visualization of the area, thus permitting precise removal of the kidney. Are there any risks to the procedure? There are risks to any type of surgery. Risks for the robotic nephrectomy include bleeding, requiring a blood transfusion, blood clots can form in the veins of the legs and pelvis, part of the intestine can poke out through the hole that was made in your skin (hernia) when the incisions were made. Anesthesia also carries a risk of heart attack and stroke. Before Surgery:- A packet of information will be sent to you. It contains helpful information, details about how to prepare for surgery, and where to arrive on the day of surgery. If you have questions or have not received this information, please call our office at . - All patients having surgery will need a physical completed to clear them medically for surgery. Pre-operative testing is completed approx. 1-2 weeks before your planned surgery. These tests will bedone either at your pre- operative day at [facility], [facility], or with your regular doctor. - Some patients may require additional testing such as a stress test, cardiac clearance or pulmonary testing. - At the time of your pre-operative visit the following tests may be completed: Blood work, EKG, Chest X-ray, CT/ MRI - The day before your surgery the surgery scheduling office will call you to confirm your arrival time. - You will need to complete a bowel prep the day before your surgery. You will be given instructions and your bowel preparation when you come in for your pre- operative appointment. After your bowel prep is completed, you may have only clear liquids for the remainder of the evening. You will not be able to eat dinner the night before your surgery. - Do NOT eat or drink anything after midnight the night before your surgery. Medications: - Your information packet will contain a list of medications that need to be stopped before surgery. - Do not take Aspirin, Motrin or Ibuprofen for 7-10 days before surgery. - Stop taking all herbal remedies 2 weeks before your surgery. - Please make certain that we know if you are taking medications that affect bleeding or are considered a blood thinner. Examples of these include Coumadin, Warfarin or Plavix. A safe plan will need to be made about how and when you take this medication near the time of your surgery. The Day of Surgery: - Please report to the designated area at your confirmed arrival time. - Before you are taken to the operating room, you will change into a gown and have an IV started. - An anesthesiologist will come speak with you about the surgery and answer any questions that you may have. - Your family may stay with you in the pre-op area until you are taken to the operating room Home going Instructions: Activity: You are encouraged to walk every day, increasing the distance each day. You may go up anddown steps, but please rest when you are tired. - Do NOT drive for 2-4 weeks after surgery or until you are not taking pain medications. Do not drive if you have a catheter in place. You may ride in a car or plane. Be sure to get up and walk every1-2 hours if you are traveling a long distance. - Avoid strenuous activity for 2-4 weeks after surgery (running, jumping, lifting more than 10 lbs.) Diet and Fluid Intake: Eating a well balanced diet is important. If you were on a specific diet before your surgery, you should return to that diet. Otherwise, there are no diet restrictions after surgery. - Do NOT drink alcoholic beverages while taking pain medications. - Drink at least 8 glasses of fluid per day, preferably water. Bowel Management: Constipation is common after surgery, especially when taking pain medication. Eating a well-balanced diet and maintaining a good fluid intake are often all that is necessary to return to you pre-surgical bowel regimen. - It is important not to strain excessively when having a bowel movement for the first several weeks following your surgery. A stool softener such as Colace may be helpful. You can purchase stool softeners without a prescription at your local drug store. - If a stool softener is not enough to relieve your constipation, you may try Milk of Magnesia or Miralax. - You may use over the counter medicine, such a Gas-X, if you experience gas pains. Incisions: Your incision sites do not require any special type of dressing and can be washed daily with plain soap and water and then patted dry. Do not rub the incision sites hard. - The skin glue will remain in place for approximately one week. Do not use antibiotic ointments such as Neosporin on your incisions; these products can dissolve the skin glue. - Bruising and/ or drainage around the incisions is not uncommon. Showering: You may shower when you get home from the hospital. Please remove the top bandages beforehand and leave any skin glue or steri-strips in place. - If you have a FRANCA drain in place, do NOT shower until after the drain is removed. After the drain is removed, you may shower. Avoid letting water hit the drain site directly until the site has healed. Managing your FRANCA Drain: If you have a drain put in after surgery, it will most likely be taken out before you go home. If you are discharged home with your FRANCA drain, you will be taught how to care for it before going home. - Be sure to record the time and amount of drainage each time you empty your drain. - After removal, apply a dry gauze dressing over the area until there is no longer any drainage. Pain Medications: Your doctor will prescribe the appropriate pain medication for you. Take these pills only as directed and only if you need them. If you are experiencing mild discomfort, you may take Tylenol or Ibuprofen. - NEVER mix alcohol with prescription pain medications. - Pain medication may make your drowsy. Do not take pain medication when doing any activity that requires coordination, such as driving. Infection: Report the following warning signs of infection to your doctor immediately: o A temperature of 101 degrees or greater o Increasing redness, swelling or drainage at the incision site o Sudden onset of increased pain or tenderness or warmth around the incision o Foul odor from the incision site. Miscellaneous: - It is normal for you to have minor discomfort after your surgery. However, if there are any significant changes in your condition such as shortness of breath, difficulty breathing, or pain or uneven swelling in your legs please go to the Emergency Room. - Perineal pain (pain between your rectum and scrotum) and testicular discomfort may last for several weeks after surgery. This will go away with time. - If you have pain while having a bowel movement, here are some things you can try: o Elevate your feet on a small stool when you have a BM. o Try using Anusol ointment or a similar product. o Try increasing the fiber and water intake in your diet. - It is not unusual to have swelling in your penis or testicles (due to the interruption of lymph drainage) following your surgery. This will go away on its own. For your comfort, roll a hand towel and place it underneath your scrotum while sitting. Return to Work: If you work in an office and are not lifting or doing strenuous activity, you may return to work when comfortable. If your work involves strenuous activity, you may need more time before returning to work. - If necessary, our office can provide a letter stating the date that you may return to work. Follow-up Appointments - Your doctor will see you approximately 3 weeks after your surgery for follow-up. - If you have a FRANCA drain in place, the office will call you to schedule an appointment to have the drain removed. Questions or Concerns - If you have questions, problems, or concerns about any aspect of your care in the immediate 3 months after your surgery, please contact our office at . * Attachments The following attachments cannot be sent through Care Everywhere. * Nephrectomy: Laparoscopic: Post-op (Urdu) documented in this encounter* Instructions* Tania Narvaez RN - 12/14/2018 Upper GI Endoscopy: What to expect at home ACTIVITY: DO NOT DRIVE, OPERATE MACHINERY, OR DRINK ANY ALCOHOL TODAY. Avoid making critical decisions, signing legal documents, or performing any activity that requires alertness for the rest of the day. You may be bloated or have gas pains since air was introduced into the stomach for the procedure. You may need to pass the gas throughout the day. You may experience a mild sore throat. You may use an [id number] chloraseptic spray, gargle with warm salt water, or use throat lozenges. Notify your physician if this feeling lasts more than 48 hours. Rest the remainder of the day. You may resume normal activity tomorrow. You may return to work tomorrow. DIET: You may resume a normal diet unless notified or recommended by your physician. You may be eager to eat a large meal after fasting, but it is a good idea to start with light mealsand ease into solid foods the first day. (*) If your stomach is upset, try clear liquids and bland, low-fat foods like plain toast or rice. Drink plenty of fluids for the first 24 hours (unless your physician states otherwise). MEDICATION: Resume your normal home medications unless notified or recommended by your physician. If you take blood thinners (such as Coumadin, Eliquis, Plavix, Aspirin, etc.) or anti-inflammatory medications (Advil, Motrin, Aleve, etc.), ask your physician when you may resume these medications. FOLLOW-UP APPOINTMENT: Follow up with or call your physician as needed. When to call for help: Call your doctor IMMEDIATELY or seek medical care if you experience: ? Severe pain or vomiting ? Coughing up more than a teaspoon of blood ? You pass a large amount of tar-like stools ? Your belly is swollen and firm with severe pain ? A fever greater than 101 degrees ? Redness or swelling of arm from the IV site for more than 48 hours ? Sudden onset of chest pain or shortness of breath ? If you become extremely dizzy or pass out (lose consciousness) IF YOU ARE UNABLE TO REACH YOUR PHYSICIAN GO TO NEAREST EMERGENCY DEPARTMENT documented in this encounter History of Present Illness * Virginia Rodriguez RN - 01/15/2019 1:29 PM EST Discharge instructions provided to pt and family, who expressed understanding. Paper script provided. Wheelchair called. * Skip Francis MD - 01/15/2019 6:43 AM EST UROLOGY PROGRESS NOTE PATIENT NAME: Alyson Barron DATE OF : 1950 ADMISSION DATE: 01/14/2019 10:07 AM TODAY'S DATE: 01/15/2019 Subjective Pain well controlled, feels well. No nausea. Stas clears. Not OOB Objective VS: BP 136/76 Pulse 70 Temp 98.1 F (36.7 C) (Temporal) Resp 18 Ht 4' 11 (1.499 m) Wt 225lb (102.1 kg) SpO2 96% BMI 45.44 kg/m Vitals: 01/15/19 0305 BP: 136/76 Pulse: 70 Resp: 18 Temp: 98.1 F (36.7 C) SpO2: 96% I & O - 24hr: Intake/Output Summary (Last 24 hours) at 01/15/2019 0643 Last data filed at 01/15/2019 0440 Gross per 24 hour Intake 2540 ml Output 1725 ml Net 815 ml Physical Exam: General: Neck: Resp: Abdomen: No acute distress Supple Normal effort Soft, obese, incision c/d/i with ecchymosis : Couch clear Skin: Skin color, texture, turgor normal, no rashes or lesions Labs and Imaging Studies Labs: CBC: Recent Labs 01/15/19 0310 WBC 10.1 HGB 13.8 HCT 40.6 MCV 97.6 PLT 311 BMP: Recent Labs 01/15/19 0310 NA 135 K 4.6 CL 105 CO2 20* BUN 14 CREATININE 0.95 Magnesium: Lab Results Component Value Date MG 2.1 10/22/2018 Phosphate: No results found for: PHOS PT/INR: No results for input(s): PROTIME, INR in the last 72 hours. U/A: No results found for: NITRITE, LEUKOCYTESUR, PHUR, WBCUA, RBCUA, BACTERIA, SPECGRAV, BLOODU, GLUCOSEU Urine Culture: No results found for: LABURIN Assessment and Plan ASSESSMENT: 69 y.o. female POD 1 Robot R Nephrectomy PLAN: -DC couch -Advance diet -OOB, ambulate -Lovenox -IS -Labs ok -Patient feels well, DC planning later today if passes gas, stas diet Skip Kmetz 01/15/2019 6:43 AM * Lexie Collins RN - 01/14/2019 3:52 PM EST Updated family * Lexie Collins RN - 01/14/2019 3:16 PM EST Arrived from [place] . Medicated per [facility] on arrival due to pain documented in this encounter Summary Purpose Family History No Family History Records FoundUnknown Family Member Name Dates Details Family history of cardiac di sorder: Mother, Father(V17.49, Z82.49) Status:Active Unknown Family Member Name Dates Details Family history of cardiac di sorder: Mother, Father(V17.49, Z82.49) Status:Active Unknown Family Member Name Dates Details Family history of cardiac di sorder: Mother, Father(V17.49, Z82.49) Status:Active Hospital Course Note 48 Hour Discharge Summary No te Patient ID: Alyson Barron [id number] 69 y.o. 1950 Admit date: 01/14/2019 Discharge date and time: 01/15/2019 Admitting Physician: Vel Staley MD Discharge Physician: Les Woodward MD Consults: none Admission Diagnoses: Renal mass [N28.89] Renal mass [N28.89] Renal cell carcinoma Morbid obesity Procedure: Right radical nephrectomy (laparoscopic with robotic assistance) Treatment: surgery Pertinent Findings and Labs noted during admission: see Epic Significant Diagnostic Studies: n/a Discharge Diagnoses: Renal mass [N28.89] Renal mass [N28.89] Discharged Condition: good Homegoing Instructions: activity as tolerated and no driving for today while taking narcotic pain medications Recommended Follow-up: Follow up with Dr. Staley in 1-2 weeks Diet: regular diet Discharge Medications: Alyson Barron Home Medication Instructions LUIGI:[id number] Printed on:01/15/19 4858 Medication Information acetaminophen (TYLENOL) 500 MG tablet Take 500 mg by mouth (more content not included)... Chief Complaint Follow up after PT. Additional Source Comments INFORMATION SOURCE (unrecogn ized section and content) DATE CREATED AUTHOR AUTHOR'S ORGANIZ ATION 02/11/2019 [facility] DATE CREATED AUTHOR AUTHOR'S ORGANIZ ATION 07/11/2021 [facility] DATE CREATED AUTHOR AUTHOR'S ORGANIZ ATION 09/10/2021 [facility] DATE CREATED AUTHOR AUTHOR'S ORGANIZ ATION 12/26/2021 [facility] DATE CREATED AUTHOR AUTHOR'S ORGANIZ ATION 04/22/2023 [facility] Care Teams (unrecognized sec tion and content) Aircraft Maintenance Supervisor Relationship Specialty Start Date End Date Tomas Cardoza MD [address] [place] [address] PCP - General 09/30/14 Vel Staley MD [address] [place] [address] Surgeon Urology 09/27/22 Aircraft Maintenance Supervisor Relationship Specialty Start Date End Date Tomas Cardoza MD [address] [place] [id number] PCP - General 09/30/14 Vel Staley MD [address] [place] [address] Surgeon Urology 09/27/22 Aircraft Maintenance Supervisor Relationship Specialty Start Date End Date Tomas Cardoza MD [address] [place], [place] [id number] PCP - General 09/30/14 Vel Staley MD [address] [place] [address] Surgeon Urology 09/27/22 Reason for Visit (unrecogniz ed section and content) FOR RECORDS PERTAINING TO PATIENTS WHO ARE OR HAVE BEEN ENROLLED IN A CHEMICAL DEPENDENCY/SUBSTANCEABUSE PROGRAM, SOME INFORMATION MAY BE OMITTED. This clinical summary was aggregated from multiple sources. Caution should be exercised in using it in the provision of clinical care. This summary normalizes information from multiple sources, and as a consequence, information in this document may materially change the coding, format and clinical context of patient data. In addition, data may be omitted in some cases. CLINICAL DECISIONS SHOULD BE BASED ON THE PRIMARY CLINICAL RECORDS. [facility] [employer] [facility]. provides no warranty or guarantee of the accuracy or completeness of information in this document.
== END | disposition home or self-care (01) ==
LOC: RAD 12:12
PROVIDERS: PCP Internal Medicine; Referring Provider Internal Medicine; Visit Provider Internal Medicine
DX: M25.551 Pain in right hip (principal)
CPT/HCPCS: 73502

== ENCOUNTER → 2023-07-03 | Outpatient (CLI) | payer MEDICARE, SELFPAY ==
[2023-07-03 12:11] LABS: Absolute Lymphocyte Count 3.02 X10^3/uL (0.83-4.51); Absolute Neutrophil Count 3.4 X10^3/uL (2.0-7.7); Basophil# 0.07 X10^3/uL; Basophil% 0.9 % (0-1); Eosinophils% 2.6 % (0-5); Hematocrit 43.2 % (37-47); Hemoglobin 14.2 g/dL (12.0-15.0); Lymphocyte # 3.02 X10^3/ul (0.83-4.51); Lymphocyte % 39.1 % (19-41); Mean Corp Hgb Conc 32.9 g/dL (32-36); Mean Corpuscular Hgb 31.9 pg (27.0-32.0); Mean Corpuscular Volume 97.1 fL (81-99); Mean Platelet Vol. 10.1 fl (6.2-12.0); Monocyte# 0.99 X10^3/uL; Monocyte% 12.8 % (0-10); NRBC Flagged by Analyzer 0 % (0-5); Neutrophil # 3.43 X10^3/uL (2.7-7.7); Neutrophil % 44.3 % (47-70); Platelet Count 425 K/mm3 (150-450); RBC Distribution Width CV 13.8 % (11.6-14.6); RBC Distribution Width SD 49.5 fl (35.1-43.9); Red Blood Count 4.45 M/mm3 (4.2-5.4); White Blood Count 7.7 K/mm3 (4.4-11.0)
[2023-07-03 12:42] LABS: Vitamin B12 771 pg/mL (211-911); Vitamin D,25 Hydroxy 87.3 ng/mL
[2023-07-03 13:21] LABS: AST(SGOT) 25 U/L (15-37); Alanine Aminotransfer ALT/SGPT 23 U/L (13-56); Albumin, Serum 3.7 g/dL (3.2-5.0); Alkaline Phosphatase 53 U/L (45-117); Anion Gap 8 (5-15); BUN 18 mg/dL (7-18); BUN/Creat Ratio 16.8 RATIO (10-20); Calcium,Total 9.8 mg/dL (8.5-10.1); Chloride 105 mmol/L (98-107); Cholesterol 157 mg/dL (200); Creatinine, Serum 1.07 mg/dL (0.55-1.02); EST Glomerular Filtration Rate 53 mL/min (>60); Est Glom Filt Rate - Afr Amer 64 mL/min (>60); Globulin 3.6 g/dL (2.2-4.2); Glucose 96 mg/dL (74-106); High Density Lipoprotein 51 mg/dL; Potassium 4.3 mmol/L (3.5-5.1); Protein, Total 7.3 g/dL (6.4-8.2); Sodium Level 138 mmol/L (136-145); Triglycerides 165 mg/dL; Very Low Density Lipoprotein 33 mg/dL (5-40)
== END | disposition home or self-care (01) ==
LOC: BIMLAB 11:08
PROVIDERS: PCP Internal Medicine; Referring Provider Internal Medicine; Visit Provider Internal Medicine
DX: I10 Essential (primary) hypertension (principal); E55.9 Vitamin D deficiency, unspecified
CPT/HCPCS: 36415; 80053; 80061; 82306; 82607; 85025

== ENCOUNTER 2023-08-14 10:27 | Emergency (ER) | payer MEDICARE, SELFPAY ==
[2023-08-14 10:28] VITALS: BP 116/93; PULSE 85; RESP 18; TEMP 36.6; O2SAT 96; BMI 45.5
--- NOTE | 2023-08-14 11:19 | EDS_ITS ---
HPI History of Present Illness Chief Complaint: Other, Pain/Inj PFSH PFSH Medical History Arthritis Cancer of kidney GERD (gastroesophageal reflux disease) Headache, migraine History of back problems Osteoarthritis Home Medications ?Medication ?Instructions ?Recorded ?Last Taken ?Type multivitamin 1 tab PO DAILY 11/30/21 Unknown History fluticasone propionate 50 1 spray intranasal DAILY #16 grams 02/09/22 Unknown Rx mcg/actuation nasal spray,suspension (Flonase Allergy Relief) fenofibrate micronized 134 mg 134 mg PO QPM #90 caps 04/19/23 Unknown Rx capsule amlodipine 10 mg tablet 10 mg PO DAILY #90 tabs 04/24/23 Unknown Rx lisinopril 40 mg tablet 40 mg PO DAILY #90 tabs 04/24/23 Unknown Rx omeprazole 40 mg capsule,delayed 40 mg PO DAILY #90 caps 04/24/23 Unknown Rx release acetaminophen 500 mg capsule 1,000 mg PO Q6H PRN 05/04/23 Unknown History fesoterodine 4 mg tablet,extended mg PO 05/12/23 Unknown History release 24 hr labetalol 100 mg tablet 100 mg PO DAILY #90 tabs 06/01/23 Unknown Rx semaglutide (weight loss) 0.25 0.25 mg (0.5 mL) subcut QWEEK #2 mL 07/03/23 Unknown Rx mg/0.5 mL subcutaneous pen injector (Wegovy) lovastatin 20 mg tablet See Rx Instructions .Route 07/13/23 Unknown Rx .COMPLEX #90 tabs amitriptyline 50 mg tablet 50 mg PO QHS #90 tabs 07/24/23 Unknown Rx meloxicam 7.5 mg tablet 7.5 mg PO DAILY #90 tabs 07/24/23 Unknown Rx Allergy/AdvReac Type Severity Reaction Status Date / Time meperidine (From Demerol) Allergy Mild hallucinati Verified 07/03/23 10:21 on Family History Mother Myocardial infarction Hypertension CVA (cerebral vascular accident) Father Myocardial infarction Brother Melanoma Parkinson disease Surgical History History of bilateral knee replacement History of gastric stapling History of hysterectomy History of kidney removal Social History household members: spouse current occupational status: retired current occupation: Worked multiple jobs Smoking Status: Never smoker Electronic Cigarette Use: not used alcohol intake: never substance use type: does not use what type of physical activity do you participate in: none do you feel safe at home: Yes EXAM Physical Exam Const Vital Signs: 08/14/23 10:28 Temperature 97.9 F Temperature Source Temporal Pulse Rate 85 Respiratory Rate 18 Blood Pressure 116/93 H Blood Pressure Mean 100 Pulse Ox 96 Oxygen Delivery Method Room Air [facility] [place] Medical decision making narrative: HISTORY OF PRESENT ILLNESS: 73-year-old female presents with left jaw pain for 4 days. Notes history of dental pain in the past. States she is referral to a surgeon. Denies trauma. No sore throat. Denies chest pain denies shortness of breath. States she is wants pain medication and referral. REVIEW OF SYSTEMS: Pertinent positives: Jaw pain Pertinent negatives: Vomiting, fever PHYSICAL EXAM: Nursing triage notes reviewed, Vital signs reviewed Constitutional: please see mdm HENT: MMM, no oropharyngeal abnormalities, edentulous, no redness, no fluctuance or induration or signs of dental abscess, Eyes: Pupils equal round and reactive to light, Extraocular muscles intact Neck: No stridor, no JVD, full neck ROM Lungs: Clear to auscultation, No wheezing or rales. No increased work of breathing, no conversational dyspnea, no accessory muscle use, no nasal flaring. No respiratory distress noted Heart: Regular rate and rhythm, No murmurs, No rubs and No gallops, 2+ distal pulses (radial, femoral, posterior tibial) in all extremities Abdomen: Soft, there is no tenderness, rigidity, rebound or guarding, no obvious peritoneal signs, no palpable pulsatile abdominal masses, no auscultated abdominal bruit : No CVAT Extremities: No edema Neuro: Alert and oriented x3, neuro exam at baseline, cranial nerves II through XII are intact. No pain with extraocular muscle movement. There is negative test of skew. 5 of 5 strength in upper and lower extremities in flexion extension. Intact sensation to light touch in upper and lower extremity dermatomes. No truncal or extremity ataxia. No dysdiadochokinesia. Normal gait. 2+ reflexes in upper and lower extremities. No meningeal signs. Negative Babinski. NIH of 0. Skin: No rash or lesions noted MEDICAL DECISION MAKING: Chief Complaint: Jaw pain External records reviewed: No recent ED visits or hospitalizations, no recent advanced imaging of the brain Factors affecting care: GERD, hypertension, hyperlipidemia History obtained from others: Patient's Consults: none MDM Narrative: The patient was hemodynamically stable, afebrile and nontoxic-appearing. Exam without focal abnormalities, no skin findings, no dental findings, no evidence of any inflammation or infection or trauma No further testing indicated given patient states it is a common problem and just wants an oral surgery referral. No signs of ACS, jaw fracture, dislocation, dental abscess, RPA, CONTENT MANAGEMENT SPECIALIST, Amado angina Gave IM Toradol and Percocet here for symptomatic control gave dental resources The patient and/or family, caregivers express understanding. The patient and/or family, caregivers agrees with the plan. Shared decision making: I will have a discussion with the patient and or visitors regarding risk/benefits of further testing or admission. They will be made aware of of the risk/benefits inherent in this decision they will be given the opportunity to voice understanding. Total critical care time today provided was at least 0 minutes. This excludes separately billable procedures. Critical care time (if documented) is secondary to the patient having high probability of clinically significant/life threatening deterioration in the patient's condition which required my urgent intervention. Impression: 1. Jaw pain Dispo: Discharge home This note was generated with [employer] dictation software. It may contain incorrect words, spelling, and punctuation that were not noted in review of the chart prio r to signing. Discharge Plan Triage Chief Complaint: Other, Pain/Inj ED Provider: Kevin Iglesias Dx/Rx/DC Orders Prescriptions: No Action multivitamin Tablet 1 tab PO DAILY fluticasone propionate [Flonase Allergy Relief] 50 mcg/actuation spr ay,suspension 1 spray intranasal DAILY Qty: 16 0RF Rx Instructions: administer into each nostril labetalol 100 mg tablet 100 mg PO DAILY Qty: 90 1RF acetaminophen 500 mg capsule 1,000 mg PO Q6H PRN Patient Comments: I will take it sometimes twice daily fesoterodine 4 mg tablet extended release 24 hr PO Patient Comments: Take 1 tablet (4 mg) by mouth daily. Do not crush, chew, or split. Wegovy 0.25 mg/0.5 mL pen injector 0.25 mg subcut QWEEK Qty: 2 0RF Rx Instructions: administer weeks 1 through 4 of therapy fenofibrate micronized 134 mg capsule 134 mg PO QPM Qty: 90 0RF lisinopril 40 mg tablet 40 mg PO DAILY Qty: 90 1RF omeprazole 40 mg capsule,delayed release(DR/EC) 40 mg PO DAILY Qty: 90 1RF amlodipine 10 mg tablet 10 mg PO DAILY Qty: 90 1RF lovastatin 20 mg tablet See Rx Instructions .ROUTE .COMPLEX Qty: 90 1RF Dose Instruction: TAKE 1 TABLET BY MOUTH EVERY EVENING Rx Instructions: TAKE 1 TABLET BY MOUTH EVERY EVENING amitriptyline 50 mg tablet 50 mg PO QHS Qty: 90 1RF meloxicam 7.5 mg tablet 7.5 mg PO DAILY Qty: 90 1RF Primary Care Provider: Tiffany Cleveland Referrals: Tiffany Cleveland MD [Primary Care Provider] - Print Language: Uzbek
[2023-08-14] MEDS: Oxycodone/Apap 5/325 Tablet PO (12:01)
[2023-08-14] MEDS: Ketorolac 15 MG/ML Vial IM (12:01)
== END 2023-08-14 12:12 | disposition home or self-care (01) ==
PROVIDERS: Emergency Provider Emergency Medicine; PCP Internal Medicine; Visit Provider Emergency Medicine
DX: R68.84 Jaw pain (principal); I10 Essential (primary) hypertension; E78.5 Hyperlipidemia, unspecified; K21.9 Gastro-esophageal reflux disease without esophagitis
CPT/HCPCS: 96372; 99282

== ENCOUNTER → 2023-08-16 | Outpatient (CLI) | payer MEDICARE, SELFPAY ==
--- NOTE | 2023-08-16 09:32 | RAD_ITS ---
STUDY: X-RAY - MANDIBLE (COMPLETE) REASON FOR EXAM: Female, 73 years old. Jaw pain TECHNIQUE: 5 view(s) of the mandible were obtained. COMPARISON: None. FINDINGS: Normal mandible. Normal visualized right temporomandibular joint. Normal visualized left temporomandibular joint. The patient is a dentulous. The remaining visualized osseous structures are normal. The soft tissue structures are unremarkable. RAD/Mandible Min 4 Views IMPRESSION: Normal x-ray examination of the mandible. Electronically Signed: Edi Lew MD at 8:19 EDT ,
== END | disposition home or self-care (01) ==
LOC: RAD 09:25
PROVIDERS: PCP Internal Medicine; Referring Provider Internal Medicine; Visit Provider Internal Medicine
DX: R68.84 Jaw pain (principal)
CPT/HCPCS: 70110

== ENCOUNTER → 2023-09-18 | Outpatient (CLI) | payer MEDICARE, SELFPAY ==
--- NOTE | 2023-09-18 14:00 | MRI_ITS ---
EXAM: MR HEAD WITHOUT INTRAVENOUS CONTRAST CLINICAL INDICATION: TRIGEMINAL NEURALGIA left side of face TECHNIQUE: Multiplanar and multisequence MR images of the brain were obtained without intravenous contrast. COMPARISON: No relevant prior studies available. FINDINGS: BRAIN AND EXTRA-AXIAL SPACES: Increased T2 signal intensity within the cerebral white matter suggestive of chronic microvascular change. No intra- or extra-axial hemorrhage. No evidence of acute infarct. No intracranial mass or mass effect. Normal preservation of the casper/white matter interface. Posterior fossa structures are unremarkable. Ventricles are appropriate for age. No hydrocephalus. Basal cisterns are patent. SELLA: Normal. Normal sella turcica, pituitary gland, infundibular stalk, optic chiasm and hypothalamus. AUDITORY SYSTEM: Normal. The internal auditory canals are patent. BONES/JOINTS: Intact calvarium. SINUSES: 15 mm left maxillary sinus mucus retention cyst. MASTOID AIR CELLS: Unremarkable as visualized. Clear. ORBITS: Unremarkable as visualized. Both globes, extraocular muscles, optic nerves and retrobulbar fat appear unremarkable. VASCULATURE: Unremarkable as visualized. Normal flow voids in the major intracranial circulation. MRI/Brain without Contrast IMPRESSION: 1. No acute intracranial abnormality. 2. Senescent changes. Electronically Signed: Yakov Rosario MD at 16:43 EDT ,
== END | disposition home or self-care (01) ==
PROVIDERS: PCP Internal Medicine; Referring Provider Psychiatry & Neurology Neurology; Visit Provider Psychiatry & Neurology Neurology
DX: G50.0 Trigeminal neuralgia (principal)
CPT/HCPCS: 70551

== ENCOUNTER → 2023-12-08 | Outpatient (CLI) | payer MEDICARE, SELFPAY ==
[2023-12-08 15:57] LABS: ALB/GLOB Ratio 0.9 RATIO (0.9-2.4); AST(SGOT) 21 U/L (15-37); Alanine Aminotransfer ALT/SGPT 26 U/L (13-56); Albumin, Serum 3.5 g/dL (3.2-5.0); Alkaline Phosphatase 58 U/L (45-117); Anion Gap 6 (5-15); BUN 14 mg/dL (7-18); BUN/Creat Ratio 14.4 RATIO (10-20); Calcium,Total 9.9 mg/dL (8.5-10.1); Chloride 106 mmol/L (98-107); Creatinine, Serum 0.97 mg/dL (0.55-1.02); EST Glomerular Filtration Rate 59 mL/min (>60); Est Glom Filt Rate - Afr Amer 72 mL/min (>60); Globulin 3.8 g/dL (2.2-4.2); Glucose 95 mg/dL (74-106); Potassium 4.2 mmol/L (3.5-5.1); Protein, Total 7.3 g/dL (6.4-8.2); Sodium Level 140 mmol/L (136-145)
== END | disposition home or self-care (01) ==
LOC: BIMLAB 11:47
PROVIDERS: PCP Internal Medicine; Referring Provider Nurse Practitioner; Visit Provider Nurse Practitioner
DX: I49.9 Cardiac arrhythmia, unspecified (principal)
CPT/HCPCS: 36415; 80053

== ENCOUNTER → 2024-04-04 | Outpatient (CLI) | payer MEDICARE, SELFPAY ==
[2024-04-04 12:55] LABS: ALB/GLOB Ratio 0.9 RATIO (0.9-2.4); AST(SGOT) 14 U/L (15-37); Alanine Aminotransfer ALT/SGPT 20 U/L (13-56); Albumin, Serum 3.2 g/dL (3.2-5.0); Alkaline Phosphatase 71 U/L (45-117); Anion Gap 5 (5-15); BUN 14 mg/dL (7-18); Calcium,Total 9.1 mg/dL (8.5-10.1); Chloride 108 mmol/L (98-107); Creatinine, Serum 0.78 mg/dL (0.55-1.02); EST Glomerular Filtration Rate 76 mL/min (>60); Est Glom Filt Rate - Afr Amer 92 mL/min (>60); Globulin 3.7 g/dL (2.2-4.2); Glucose 95 mg/dL (74-106); Magnesium 2.2 mg/dL (1.6-2.6); Potassium 3.8 mmol/L (3.5-5.1); Protein, Total 6.9 g/dL (6.4-8.2); Sodium Level 140 mmol/L (136-145)
[2024-04-04 13:33] LABS: Absolute Lymphocyte Count 2.76 X10^3/uL (0.83-4.51); Basophil# 0.05 X10^3/uL; Basophil% 0.7 % (0-1); Eosinophil# 0.17 X10^3/uL; Eosinophils% 2.2 % (0-5); Hematocrit 41.4 % (37-47); Hemoglobin 14.1 g/dL (12.0-15.0); Lymphocyte # 2.76 X10^3/ul (0.83-4.51); Lymphocyte % 36.2 % (19-41); Mean Corp Hgb Conc 34.1 g/dL (32-36); Mean Corpuscular Hgb 33.7 pg (27.0-32.0); Mean Corpuscular Volume 98.8 fL (81-99); Mean Platelet Vol. 10.5 fl (6.2-12.0); Monocyte# 0.65 X10^3/uL; Monocyte% 8.5 % (0-10); NRBC Flagged by Analyzer 0 % (0-5); Neutrophil # 3.97 X10^3/uL (2.7-7.7); Platelet Count 359 K/mm3 (150-450); RBC Distribution Width CV 13.5 % (11.6-14.6); RBC Distribution Width SD 48.6 fl (35.1-43.9); Red Blood Count 4.19 M/mm3 (4.2-5.4); White Blood Count 7.6 K/mm3 (4.4-11.0)
[2024-04-04 15:49] LABS: Carbamazepine (Tegretol) 7.4 ug/mL (4.0-12.0)
== END | disposition home or self-care (01) ==
LOC: MTLAB 10:44
PROVIDERS: PCP Internal Medicine
DX: G50.0 Trigeminal neuralgia (principal)
CPT/HCPCS: 36415; 80053; 80156; 83735; 85025; 86787

== ENCOUNTER → 2024-11-21 | Outpatient (CLI) | payer MEDICARE, SELFPAY ==
--- NOTE | 2024-11-21 11:39 | RAD_ITS ---
PROCEDURE: CHEST PA AND LATERAL 11/21/2024 REASON FOR EXAM: WHEEZE TECHNIQUE: Procedure Code: RADCXR Modality: DX Procedure: CHEST PA AND LATERAL COMPARISON: None FINDINGS: Heart and mediastinum are within normal limits. Atherosclerotic plaque of the aorta. Prominent coarse interstitial markings of the lung parenchyma. Status post gastric bypass surgery. No destructive process. No pneumothorax. Soft tissues are normal. RAD/Chest PA and Lateral IMPRESSION: No acute cardiopulmonary process. Reading Location: [id number]
== END | disposition home or self-care (01) ==
LOC: MTRAD 11:39
PROVIDERS: PCP Internal Medicine; Referring Provider Nurse Practitioner Family; Visit Provider Nurse Practitioner Family
DX: R06.2 Wheezing (principal)
CPT/HCPCS: 71046

== ENCOUNTER → 2025-02-19 | Outpatient (CLI) | payer MEDICARE, SELFPAY ==
[2025-02-19 12:48] LABS: Hematocrit 40.0 % (37-47); Hemoglobin 13.3 g/dL (12.0-15.0); Immature Granulocytes Count 0.020 X10^3/uL (0.0-0.0); Mean Corp Hgb Conc 33.3 g/dL (32-36); Mean Corpuscular Volume 100.5 fL (81-99); Mean Platelet Vol. 9.1 fl (6.2-12.0); NRBC Flagged by Analyzer 0 % (0-5); Platelet Count 382 K/mm3 (150-450); RBC Distribution Width CV 15.5 % (11.6-14.6); RBC Distribution Width SD 58.4 fl (35.1-43.9); Red Blood Count 3.98 M/mm3 (4.2-5.4); White Blood Count 8.5 K/mm3 (4.4-11.0)
[2025-02-19 13:28] LABS: AST(SGOT) 23 U/L (<=31); Alanine Aminotransfer ALT/SGPT 16 U/L (<=34); Albumin, Serum 4.0 g/dL (3.4-4.8); Alkaline Phosphatase 60 U/L (35-104); Anion Gap 12 (5-15); BUN 13 mg/dL (4-19); BUN/Creat Ratio 13.5 RATIO (10-20); Calcium,Total 9.9 mg/dL (7.6-11.0); Carbon Dioxide 26.7 mmol/L (21.0-32.0); Chloride 103 mmol/L (98-108); Globulin 2.8 g/dL (2.2-4.2); Glucose 89 mg/dL (70-99); Potassium 4.2 mmol/L (3.3-5.1); Pro- Brain NATRIURETIC PEPTIDE 1049 pg/mL (<=1800)
[2025-02-20 12:44] LABS: Vitamin B12 762 pg/mL (180-914)
== END | disposition home or self-care (01) ==
LOC: LAB 11:29
PROVIDERS: PCP Internal Medicine; Referring Provider Nurse Practitioner Family; Visit Provider Nurse Practitioner Family
DX: I10 Essential (primary) hypertension (principal); C64.9 Malignant neoplasm of unspecified kidney, except renal pelvis; I48.91 Unspecified atrial fibrillation; R60.0 Localized edema; Z86.73 Personal history of transient ischemic attack (TIA), and cerebral infarction without residual deficits; D53.9 Nutritional anemia, unspecified
CPT/HCPCS: 36415; 80053; 82607; 83880; 84443; 85025

== ENCOUNTER → 2025-02-25 | Outpatient (CLI) | payer MEDICARE, SELFPAY ==
[2025-02-25 13:34] LABS: FOLATES,SERUM (FOLIC ACID) 26.90 ng/mL (4.60-34.80)
== END | disposition home or self-care (01) ==
LOC: CIMLAB 10:47
PROVIDERS: PCP Internal Medicine; Referring Provider Nurse Practitioner Family; Visit Provider Nurse Practitioner Family
DX: D53.9 Nutritional anemia, unspecified (principal)
CPT/HCPCS: 36415; 82746